=== PATIENT | male | born 1985 | race Caucasian/White ===

== ENCOUNTER 2018-12-19 23:31 | Emergency (ER) | payer SELFPAY ==
[2018-12-19 23:40] VITALS: BP 137/78
[2018-12-20] MEDS ORDERED: DIAZEPAM 5 MG TABLET PO ONE (03:36)
[2018-12-20] MEDS ORDERED: DEXAMETHASONE SOD PHOS INJ 10 MG/1 ML VIAL IM ONE (03:36)
--- NOTE | 2018-12-20 03:36 | ER Document Report ---
HPI - HPI Time Seen by Provider: 12/20/18 03:19 Pain Level: 5 Context: Patient is a 33-year-old male that comes to the emergency department for chief complaint of back pain. 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 He denies numbness, incontinence, fever, history of IV drug abuse, or trauma to the area. He states he did this once before and slowly recovered. He denies any diagnosed medical problems or daily medications. at bedside. - CONSTITUTIONAL Constitutional: DENIES: Fever, Chills - GASTROINTESTINAL Gastrointestinal: DENIES: Abdominal Pain Past Medical History - General Information source: Patient - Social History Smoking Status: Current Every Day Smoker Frequency of alcohol use: None Drug Abuse: None Lives with: Family Family History: Reviewed & Not Pertinent Patient has suicidal ideation: No Patient has homicidal ideation: No Past Surgical History: Reports: Hx Orthopedic Surgery - L collar bone; L arm - Immunizations Immunizations up to date: Yes Hx Diphtheria, Pertussis, Tetanus Vaccination: Yes Vertical Provider Document - CONSTITUTIONAL General Appearance: WD/WN, Mild Distress - Patient has trouble sitting down, he can stand and he ambulates with obvious discomfort - INFECTION CONTROL TRAVEL OUTSIDE OF THE [place] IN LAST 30 DAYS: No - HEENT HEENT: Atraumatic, Normocephalic - NECK Neck: Normal Inspection - RESPIRATORY Respiratory: Breath Sounds Normal, No Respiratory Distress - CARDIOVASCULAR Cardiovascular: Regular Rate, Regular Rhythm - GI/ABDOMEN Gastrointestinal: Abdomen Soft, Abdomen Non-Tender - BACK Back: negative: Normal Inspection - Noted muscle spasms along the right paralumbar area, positive straight leg raise, positive axial loading. No midline tenderness of the spine, no saddle anesthesia, normal distal neurovascular exam of all extremities - MUSCULOSKELETAL/EXTREMETIES Musculoskeletal/Extremeties: MAEW, FROM, Non-Tender - NEURO Level of Consciousness: Awake, Alert, Appropriate Motor/Sensory: No Motor Deficit, No Sensory Deficit - DERM Integumentary: Warm, Dry, No Rash Course - Re-evaluation Re-evalutation: Patient's exam is very consistent with a herniated disc without signs of spinal cord compression. Because of his level of discomfort we will use diazepam to attempt to allow him to relax, he has a lot of difficulty even sitting at this time. I discussed follow-up, expectations, return precautions at length. Patient and significant other state appreciation and agreement. Stable time of discharge. - Vital Signs Vital signs: Temp Pulse Resp BP Pulse Ox 98.0 F 78 16 137/78 H 98 12/19/18 23:39 12/19/18 23:39 12/19/18 23:39 12/19/18 23:39 12/19/18 23:39 Discharge - Discharge Clinical Impression: Lower back pain Qualifiers: Chronicity: acute Back pain laterality: right Sciatica presence: with sciatica Sciatica laterality: sciatica of right side Qualified Code(s): M54.41 - Lumbago with sciatica, right side Condition: Stable Disposition: HOME, SELF-CARE Additional Instructions: Your evaluation is consistent with a herniated disc causing pain down your sciatic nerve. You have been treated with steroids here, I recommend the anti- inflammatory as prescribed, heat to the area, and the diazepam as a muscle relaxant. Avoid lifting/twisting. Symptoms should gradually resolve. Follow- up with primary care for additional management. Return if you worsen including inability to urinate, accidentally moving her bowels, numbness in your legs or groin area, or any other concerning or worsening symptoms. Prescriptions: Naproxen 500 mg PO BID PRN #20 tablet PRN Reason: Diazepam [Valium 5 mg Tablet] 1 - 2 tab PO TID PRN #12 tablet PRN Reason: Forms: Return to Work
== END 2018-12-20 03:49 | disposition home or self-care (01) ==
LOC: ER 23:31
DX: M54.41 Lumbago with sciatica, right side (principal); M54.9 Dorsalgia, unspecified; M79.604 Pain in right leg; F17.200 Nicotine dependence, unspecified, uncomplicated
CPT/HCPCS: J1100